=== PATIENT | male | born 1995 | race Hispanic/Latino ===

== ENCOUNTER 2024-09-17 11:47 | Emergency (ER) | payer OTHER ==
[~2024-09-17] VITALS: Ht 177.8 cm; Wt 65.8 kg
[2024-09-17 11:47] VITALS: BP 149/84; PULSE 103; RESP 18; TEMP 98.2; O2SAT 95
[2024-09-17] MEDS ORDERED: TORADOL ONE (12:02)
[2024-09-17] MEDS: TORADOL IM STA (12:13)
[2024-09-17 12:30] VITALS: BP 151/88; PULSE 86; RESP 18; TEMP 98.2; O2SAT 95
== END 2024-09-17 12:36 | disposition home or self-care (01) ==
LOC: ER 11:47
DX: S99.921A Unspecified injury of right foot, initial encounter (principal); X58.XXXA Exposure to other specified factors, initial encounter; Y93.89 Activity, other specified; Y92.89 Other specified places as the place of occurrence of the external cause; Y99.0 Civilian activity done for income or pay
CPT/HCPCS: 99283; 96372; 73630; J1885